=== PATIENT | female | born 1995 | race Caucasian/White ===

== ENCOUNTER 2018-05-09 11:59 | Emergency (ER) | payer BC, OTHER ==
[2018-05-09] MEDS ORDERED: ACETAMINOPHEN 325 MG TABLET PO ONE (12:38)
--- NOTE | 2018-05-09 12:39 | ER Document Report ---
ED Medical Screen (RME) - General Chief Complaint: Flank Pain Stated Complaint: BACK PAIN Time Seen by Provider: 05/09/18 12:30 Notes: 23-year-old female patient, 16-17 weeks complaining of left flank pain. Seems to get worse with urination. No fever, chills, sweats. No nausea or vomiting. Pain is located in the left flank area and radiates down to the left lower quadrant. No vaginal discharge. No vaginal bleeding. Ultrasound has been performed by OB confirming IUP. I have greeted and performed a rapid initial assessment of this patient. A comprehensive ED assessment and evaluation of the patient, analysis of test resu lts and completion of the medical decision making process will be conducted by additional ED providers. TRAVEL OUTSIDE OF THE [place] IN LAST 30 DAYS: No - Related Data Allergies/Adverse Reactions: No Known Allergies Allergy (Unverified 05/09/18 12:03) Past Medical History Renal/ Medical History: Denies: Hx Peritoneal Dialysis Physical Exam - Vital signs Vitals: Temp Pulse Resp BP Pulse Ox 97.8 F 92 20 143/87 H 100 05/09/18 12:14 05/09/18 12:14 05/09/18 12:14 05/09/18 12:14 05/09/18 12:14 Course - Re-evaluation Re-evalutation: 05/09/18 12:39 Physical exam: Left flank pain with percussion, mild left lower quadrant tenderness to palpation. No guarding or rebound. - Vital Signs Vital signs: Temp Pulse Resp BP Pulse Ox 97.8 F 92 20 143/87 H 100 05/09/18 12:14 05/09/18 12:14 05/09/18 12:14 05/09/18 12:14 05/09/18 12:14
[2018-05-09] MEDS ORDERED: OXYCODONE-ACETAMINOPHEN 5-325 MG TABLET PO ONE (12:51)
[2018-05-09 13:33] LABS: APPEARANCE,URINE TURBID; BILIRUBIN,URINE NEGATIVE (NEGATIVE); CALCIUM OXALATE CRYSTALS,URINE FEW /HPF; GLUCOSE, URINE NEGATIVE (NEGATIVE); KETONES,URINE 80 mg/dL (NEGATIVE); LEUKOCYTE ESTERASE,URINE MODERATE (NEGATIVE); NITRITE,URINE NEGATIVE (NEGATIVE); PROTEIN,URINE 30 mg/dL (NEGATIVE); URINE SPECIFIC GRAVITY 1.027; UROBILINOGEN,URINE NEGATIVE mg/dL (<2.0)
[2018-05-09 13:34] LABS: COLOR,URINE YELLOW
[2018-05-09] MEDS ORDERED: ONDANSETRON 4 MG TAB.RAPDIS ONE (13:40)
[2018-05-09] MEDS ORDERED: ONDANSETRON 4 MG TAB.RAPDIS PO ONE (13:41)
[2018-05-09] MEDS ORDERED: MORPHINE SULFATE 10 MG/ML INJ IV ONE (14:06)
[2018-05-09] MEDS ORDERED: CEFTRIAXONE INJ 1000 MG VIAL IV ONE (14:06)
[2018-05-09] MEDS ORDERED: ONDANSETRON HCL INJ/PF 4 MG/2 ML SDV IV ONE (14:06)
[2018-05-09] MEDS ORDERED: NORMAL SALINE 1000 ML 1,000 ML IV ONE (14:06)
--- NOTE | 2018-05-09 14:17 | RADIOLOGY REPORT (SQ) ---
EXAM DESCRIPTION: U/S RETROPERITON (RENAL/AORTA) COMPLETED DATE/TIME: 05/09/2018 2:07 pm REASON FOR STUDY: + preg and left flank pain COMPARISON: None. TECHNIQUE: Dynamic and static grayscale images acquired of the kidneys and bladder and recorded on P ACS. Additional selected color Doppler and spectral images recorded. LIMITATIONS: None. FINDINGS: RIGHT KIDNEY: Normal size, 10.6 cm. Normal echogenicity. No solid or suspicious masses. No hydronephrosis. No calcifications. LEFT KIDNEY: Normal size, 12 cm. Normal echogenicity. No solid or suspicious masses. The renal pelv is is prominent, but there is no true hydronephrosis. No calcifications. BLADDER: Not well distended. Not well evaluated. OTHER FINDINGS: No other significant finding. IMPRESSION: There is slight prominence of the right renal pelvis but there is no true hydronephrosis . TECHNICAL DOCUMENTATION: JOB ID: [id number] [employer]- All Rights Reserved Reading location - IP/workstation name: [email or web address]
[2018-05-09 15:26] LABS: ABSOLUTE LYMPHOCYTES (AUTO) 0.9 10^3/uL (0.5-4.7); ABSOLUTE MONOCYTES (AUTO) 0.4 10^3/uL (0.1-1.4); ABSOLUTE NEUT (AUTO) 14.3 10^3/uL (1.7-8.2); BASOPHILS % (AUTO) 0.2 % (0-2); HEMATOCRIT 40.4 % (36.0-47.0); HEMOGLOBIN 13.8 g/dL (12.0-15.5); LYMPHOCYTES % (AUTO) 5.6 % (13-45); MEAN CORPUSCULAR HEMOGLOBIN 30.8 pg (27.0-33.4); MEAN CORPUSCULAR HGB CONC 34.2 g/dL (32.0-36.0); MEAN CORPUSCULAR VOLUME 90 fl (80-97); MONOCYTES % (AUTO) 2.4 % (3-13); PLATELET COUNT 212 10^3/uL (150-450); RED BLOOD COUNT 4.49 10^6/uL (3.72-5.28); RED CELL DISTRIBUTION WIDTH 14.4 % (11.5-14.0); SEGMENTED NEUTROPHILS % (AUTO) 91.8 % (42-78); TOTAL CELLS COUNTED % (AUTO) 100 %; WHITE BLOOD COUNT 15.6 10^3/uL (4.0-10.5)
[2018-05-09 15:38] LABS: ALANINE AMINOTRANSFERASE 38 U/L (9-52); ALBUMIN 4.2 g/dL (3.5-5.0); ALKALINE PHOSPHATASE 58 U/L (38-126); ANION GAP 12 (5-19); ASPARTATE AMINO TRANSFERASE 21 U/L (14-36); BILIRUBIN,DIRECT 0.3 mg/dL (0.0-0.4); BILIRUBIN,TOTAL 0.5 mg/dL (0.2-1.3); BLOOD UREA NITROGEN 8 mg/dL (7-20); CALCIUM 10.1 mg/dL (8.4-10.2); CARBON DIOXIDE 23 mmol/L (22-30); CHLORIDE 104 mmol/L (98-107); GLUCOSE 103 mg/dL (75-110); POTASSIUM 4.1 mmol/L (3.6-5.0); TOTAL PROTEIN 6.3 g/dL (6.3-8.2)
[2018-05-09] MEDS ORDERED: METOCLOPRAMIDE HCL INJ/PF 10 MG/2 ML SDV IV ONE (16:36)
[2018-05-09] MEDS ORDERED: DIPHENHYDRAMINE HCL 50 MG/ML VIAL IV ONE (16:36)
--- NOTE | 2018-05-09 18:30 | ER Document Report ---
ED General - General Chief Complaint: Flank Pain Stated Complaint: BACK PAIN Time Seen by Provider: 05/09/18 12:30 TRAVEL OUTSIDE OF THE [place] IN LAST 30 DAYS: No - HPI Notes: Patient presents emergency department for evaluation. She has pain in her left lower back for the last several days. She started with nausea and vomiting today. She denies any fevers but has had some chills. She is approximately 16 weeks . She actually has an appointment with her OB tomorrow. - Related Data Allergies/Adverse Reactions: No Known Allergies Allergy (Unverified 05/09/18 12:03) Past Medical History - General Information source: Patient - Social History Smoking Status: Never Smoker Family History: Reviewed & Not Pertinent Patient has suicidal ideation: No Patient has homicidal ideation: No Renal/ Medical History: Denies: Hx Peritoneal Dialysis Review of Systems - Review of Systems -: Yes ROS unobtainable due to patient's medical condition Constitutional: Chills EENT: No symptoms reported Cardiovascular: No symptoms reported Respiratory: No symptoms reported Gastrointestinal: See HPI Genitourinary: See HPI Female Genitourinary: Musculoskeletal: No symptoms reported Hematologic/Lymphatic: No symptoms reported Physical Exam - Vital signs Vitals: Temp Pulse Resp BP Pulse Ox 97.8 F 92 20 143/87 H 100 05/09/18 12:14 05/09/18 12:14 05/09/18 12:14 05/09/18 12:14 05/09/18 12:14 - Notes Notes: Vital signs reviewed, please refer to chart. Patient is normocephalic, atraumatic. Pupils equal round, reactive to light. Neck is supple without meningismus. Heart is regular rate and rhythm. Lungs are clear to auscultation bilaterally. Abdomen is soft, nontender, normoactive bowel sounds throughout. Extremities without cyanosis, clubbing, edema. Peripheral pulses are equal. Skin is warm and dry. Patient is awake, alert, neurological exam is nonfocal. Examination of the spine yields no midline tenderness or step-off. She has paraspinal musculature tenderness noted from approximately L3-L5 on the left. No CVA tenderness. Negative straight leg raise bilaterally. Sensation intact. Course - Re-evaluation Re-evalutation: 05/09/18 18:26 Patient presents to the emergency department for evaluation. She had nausea and vomiting. She had orders as initially placed by the doctor in triage. She is found to have urinary tract infection. She is given IV antibiotics. She continued to have pain and nausea. She was medicated further. Renal ultrasound was performed. There was prominence of the right renal pelvis but not the left. This does not correlate with her side of symptoms. I do not have a strong suspicion for a need for inpatient at this time. He does have a leukocytosis but her vitals improved. She is feeling significantly improved. She Livan has follow-up tomorrow. I did explain to her the risks associated with urinary tract infection in . The importance of follow-up on the culture and recheck of her urine was stressed. I will go ahead and treat her with antibiotics. She has an appointment with her OB tomorrow. She is to return to the ED with worsening or new concerning symptoms of any sort. 05/09/18 18:28 05/09/18 19:21 Did perform an informal bedside ultrasound. Positive intrauterine with a heart rate of 152 bpm. 4 limbs, moving spontaneously. - Vital Signs Vital signs: Temp Pulse Resp BP Pulse Ox 97.8 F 92 20 143/87 H 100 05/09/18 12:14 05/09/18 12:14 05/09/18 12:14 05/09/18 12:14 05/09/18 12:14 - Laboratory Result Diagrams: 05/09/18 14:55 05/09/18 14:55 Laboratory results interpreted by me: 05/09/18 05/09/18 12:37 14:55 WBC 15.6 H RDW 14.4 H Seg Neutrophils % 91.8 H Lymphocytes % 5.6 L Monocytes % 2.4 L Absolute Neutrophils 14.3 H Urine Protein 30 H Urine Ketones 80 H Urine Blood SMALL H Ur Leukocyte Esterase MODERATE H Urine Ascorbic Acid 40 H Discharge - Discharge Clinical Impression: Urinary tract infection, Nausea and vomiting, Instructions: Cephalexin ([facility]), Urinary Tract Infection ([facility]) Additional Instructions: Stay hydrated with small, frequent sips of fluids. Take all the antibiotics as prescribed until gone. Follow-up with your OB as scheduled tomorrow. Return to the emergency department with worsening or new concerning symptoms. Prescriptions: Cephalexin Monohydrate [Keflex 500 mg Capsule] 500 mg PO Q6H 5 Days #28 capsule
[2018-05-09 19:24] VITALS: BP 126/85
== END 2018-05-09 19:26 | disposition home or self-care (01) ==
LOC: ER 11:59
DX: O23.42 Unspecified infection of urinary tract in pregnancy, second trimester (principal); O21.9 Vomiting of pregnancy, unspecified; O26.892 Other specified pregnancy related conditions, second trimester; M54.9 Dorsalgia, unspecified; R10.9 Unspecified abdominal pain; M54.5 Low back pain; Z3A.16 16 weeks gestation of pregnancy
CPT/HCPCS: 36415; 87040; 87086; 85025; 87088; 80053; 81001; 76770; J1200; S0119; J2765; J2270; J0696; J2405; J7030

== ENCOUNTER 2018-09-13 10:19 | Outpatient (CLI) | payer BC, OTHER ==
[2018-09-13 10:52] LABS: ABSOLUTE LYMPHOCYTES (AUTO) 1.6 10^3/uL (0.5-4.7); ABSOLUTE MONOCYTES (AUTO) 0.6 10^3/uL (0.1-1.4); ABSOLUTE NEUT (AUTO) 7.7 10^3/uL (1.7-8.2); BASOPHILS % (AUTO) 0.2 % (0-2); EOSINOPHILS % (AUTO) 0.3 % (0-6); HEMATOCRIT 36.5 % (36.0-47.0); HEMOGLOBIN 12.3 g/dL (12.0-15.5); LYMPHOCYTES % (AUTO) 15.9 % (13-45); MEAN CORPUSCULAR HGB CONC 33.8 g/dL (32.0-36.0); MEAN CORPUSCULAR VOLUME 92 fl (80-97); PLATELET COUNT 180 10^3/uL (150-450); RED BLOOD COUNT 3.98 10^6/uL (3.72-5.28); SEGMENTED NEUTROPHILS % (AUTO) 77.6 % (42-78); TOTAL CELLS COUNTED % (AUTO) 100 %; WHITE BLOOD COUNT 9.9 10^3/uL (4.0-10.5)
[2018-09-13 11:03] LABS: APPEARANCE,URINE SLIGHTLY-CLOUDY; BILIRUBIN,URINE NEGATIVE (NEGATIVE); COLOR,URINE YELLOW; GLUCOSE, URINE NEGATIVE (NEGATIVE); KETONES,URINE TRACE mg/dL (NEGATIVE); LEUKOCYTE ESTERASE,URINE TRACE (NEGATIVE); NITRITE,URINE NEGATIVE (NEGATIVE); PROTEIN,URINE 30 mg/dL (NEGATIVE); URINE SPECIFIC GRAVITY 1.016
[2018-09-13 11:07] LABS: ALANINE AMINOTRANSFERASE 20 U/L (9-52); ALBUMIN 3.1 g/dL (3.5-5.0); ALKALINE PHOSPHATASE 88 U/L (38-126); ASPARTATE AMINO TRANSFERASE 17 U/L (14-36); BILIRUBIN,DIRECT 0.1 mg/dL (0.0-0.4); BILIRUBIN,TOTAL 0.3 mg/dL (0.2-1.3); BLOOD UREA NITROGEN 4 mg/dL (7-20); CALCIUM 8.7 mg/dL (8.4-10.2); CARBON DIOXIDE 23 mmol/L (22-30); GLUCOSE 76 mg/dL (75-110); POTASSIUM 3.9 mmol/L (3.6-5.0); TOTAL PROTEIN 5.3 g/dL (6.3-8.2); URIC ACID 4.2 mg/dL (2.5-6.2)
[2018-09-13 11:12] LABS: CHLORIDE 106 mmol/L (98-107); SODIUM 135.3 mmol/L (137-145)
[2018-09-13 11:14] LABS: ANION GAP 6 (5-19)
[2018-09-13 11:20] LABS: URINE AMPHETAMINES SCREEN NEGATIVE; URINE BARBITURATES SCREEN NEGATIVE; URINE BENZODIAZEPINES SCREEN NEGATIVE; URINE COCAINE SCREEN NEGATIVE; URINE MARIJUANA (THC) SCREEN NEGATIVE; URINE METHADONE SCREEN NEGATIVE; URINE PHENCYCLIDINE SCREEN NEGATIVE
[2018-09-13 11:22] LABS: UR PRO/CREAT RATIO RESULT 0.1 mg/mg (0.0-0.2); URINE CREATININE 138.5 mg/dL (16-327); URINE PROTEIN 15.5 mg/dL (<12)
--- NOTE | 2018-09-13 11:49 | Non Stress Test Report ---
Non Stress Test Datetime Report Generated by CPN: 09/13/2018 11:48 DEMOGRAPHIC Test Number: 2 EGA NST: 34.3 INDICATION Indication for Study: Gestational Hypertension; Diabetes Mellitus; Ordered by Provider VITAL SIGNS Temperature - NST: 98.6 Pulse - NST: 83 RESP - NST: 18 NBPSYS NST: 126 NBPDIA NST: 74 MONITORING Monitor Explained: Monitor Explained; Test Explained; Patient Verbalized Understanding Time on Monitor: 09/13/2018 10:35 Time off Monitor: 09/13/2018 11:46 NST Duration: 71 NST INTERVENTIONS NST Interventions: PO Hydration; Reposition Patient Physician Notified NST: P Villagran CNM BABY A: [id number] BABY A Movement : Present Contraction Frequency : irrit FHR Baseline : 130 Accelerations : 15X15 Decelerations : None Variability : Moderate 6-25bpm NST Review: Meets Criteria for Reactive NST NST Review and Verified By : BL ROULUND, RN NST Results: Reactive NST COMMENTS NST Comments: Strip reviewed by P Villagran CNM NST REPORT Report Trigger: Send Report
== END 2018-09-13 12:02 | disposition home or self-care (01) ==
LOC: LC 10:19
PROVIDERS: ATTEND Obstetrics & Gynecology
PROC: 4A1HXCZ Monitoring of Products of Conception, Cardiac Rate, External Approach (ICD-10-PCS; principal; 2018-09-13)
DX: O13.3 Gestational [pregnancy-induced] hypertension without significant proteinuria, third trimester (principal); O24.913 Unspecified diabetes mellitus in pregnancy, third trimester; Z3A.34 34 weeks gestation of pregnancy
CPT/HCPCS: 36415; 59025; 80053; 80307; 81001; 82570; 83615; 84156; 84550; 85025

== ENCOUNTER 2018-09-17 16:54 | Outpatient (CLI) | payer BC, OTHER ==
[2018-09-17 17:51] LABS: AMORPHOUS SEDIMENT,URINE TRACE /HPF; APPEARANCE,URINE CLOUDY; BILIRUBIN,URINE NEGATIVE (NEGATIVE); CALCIUM OXALATE CRYSTALS,URINE RARE /HPF; COLOR,URINE YELLOW; GLUCOSE, URINE NEGATIVE (NEGATIVE); KETONES,URINE NEGATIVE (NEGATIVE); LEUKOCYTE ESTERASE,URINE SMALL (NEGATIVE); NITRITE,URINE NEGATIVE (NEGATIVE); PROTEIN,URINE NEGATIVE (NEGATIVE); URINE SPECIFIC GRAVITY 1.015; UROBILINOGEN,URINE NEGATIVE mg/dL (<2.0)
[2018-09-17 18:12] LABS: UR PRO/CREAT RATIO RESULT 0.2 mg/mg (0.0-0.2); URINE CREATININE 126.4 mg/dL (16-327); URINE PROTEIN 25.9 mg/dL (<12)
[2018-09-17 18:14] LABS: ABSOLUTE BASOPHILS # (AUTO) 0.1 10^3/uL (0.0-0.2); ABSOLUTE LYMPHOCYTES (AUTO) 1.7 10^3/uL (0.5-4.7); ABSOLUTE MONOCYTES (AUTO) 0.7 10^3/uL (0.1-1.4); ABSOLUTE NEUT (AUTO) 7.1 10^3/uL (1.7-8.2); BASOPHILS % (AUTO) 0.7 % (0-2); EOSINOPHILS % (AUTO) 0.2 % (0-6); HEMATOCRIT 33.6 % (36.0-47.0); HEMOGLOBIN 11.5 g/dL (12.0-15.5); LYMPHOCYTES % (AUTO) 17.7 % (13-45); MEAN CORPUSCULAR HGB CONC 34.3 g/dL (32.0-36.0); MEAN CORPUSCULAR VOLUME 90 fl (80-97); MONOCYTES % (AUTO) 7.6 % (3-13); PLATELET COUNT 175 10^3/uL (150-450); RED BLOOD COUNT 3.72 10^6/uL (3.72-5.28); RED CELL DISTRIBUTION WIDTH 15.6 % (11.5-14.0); SEGMENTED NEUTROPHILS % (AUTO) 73.8 % (42-78); TOTAL CELLS COUNTED % (AUTO) 100 %; WHITE BLOOD COUNT 9.6 10^3/uL (4.0-10.5)
[2018-09-17 18:21] LABS: URINE AMPHETAMINES SCREEN NEGATIVE; URINE BARBITURATES SCREEN NEGATIVE; URINE BENZODIAZEPINES SCREEN NEGATIVE; URINE COCAINE SCREEN NEGATIVE; URINE MARIJUANA (THC) SCREEN NEGATIVE; URINE METHADONE SCREEN NEGATIVE; URINE PHENCYCLIDINE SCREEN NEGATIVE
[2018-09-17 18:33] LABS: ALANINE AMINOTRANSFERASE 25 U/L (9-52); ALBUMIN 2.9 g/dL (3.5-5.0); ALKALINE PHOSPHATASE 80 U/L (38-126); ANION GAP 5 (5-19); ASPARTATE AMINO TRANSFERASE 16 U/L (14-36); BILIRUBIN,DIRECT 0.1 mg/dL (0.0-0.4); BILIRUBIN,TOTAL 0.2 mg/dL (0.2-1.3); BLOOD UREA NITROGEN 7 mg/dL (7-20); CARBON DIOXIDE 23 mmol/L (22-30); CHLORIDE 108 mmol/L (98-107); GLUCOSE 83 mg/dL (75-110); POTASSIUM 3.6 mmol/L (3.6-5.0); SODIUM 135.5 mmol/L (137-145); URIC ACID 4.6 mg/dL (2.5-6.2)
--- NOTE | 2018-09-17 19:38 | Non Stress Test Report ---
Non Stress Test Datetime Report Generated by CPN: 09/17/2018 19:37 DEMOGRAPHIC EGA NST: 35.0 INDICATION Indication for Study: Other Indication for Study (NST) Other: non reactive NST in office VITAL SIGNS Temperature - NST: 98.4 Pulse - NST: 88 RESP - NST: 18 NBPSYS NST: 141 NBPDIA NST: 89 URINE RESULTS Urine Ketones - NST: Positive MONITORING Monitor Explained: Monitor Explained; Test Explained; Patient Verbalized Understanding Time on Monitor: 09/17/2018 17:09 Time off Monitor: 09/17/2018 19:13 NST Duration: 124 NST INTERVENTIONS NST Interventions: PO Hydration Physician Notified NST: Dr. Florencio BABY A: [id number] BABY A Movement : Present Contraction Frequency : none FHR Baseline : 135 Accelerations : 15X15 Decelerations : None Variability : Moderate 6-25bpm NST Review: Meets Criteria for Reactive NST NST Review and Verified By : BL ROULUND, RN NST Results: Reactive NST REPORT Report Trigger: Send Report
== END 2018-09-17 19:22 | disposition home or self-care (01) ==
LOC: LC 16:54
PROVIDERS: ATTEND Obstetrics & Gynecology
DX: O47.03 False labor before 37 completed weeks of gestation, third trimester (principal); Z3A.34 34 weeks gestation of pregnancy
CPT/HCPCS: 36415; 59025; 80053; 80307; 81001; 82570; 83615; 84156; 84550; 85025

== ENCOUNTER 2018-09-20 14:28 | Outpatient (CLI) | payer BC, OTHER ==
[2018-09-20 15:17] LABS: APPEARANCE,URINE SLIGHTLY-CLOUDY; BILIRUBIN,URINE NEGATIVE (NEGATIVE); COLOR,URINE YELLOW; GLUCOSE, URINE NEGATIVE (NEGATIVE); KETONES,URINE NEGATIVE (NEGATIVE); LEUKOCYTE ESTERASE,URINE NEGATIVE (NEGATIVE); NITRITE,URINE NEGATIVE (NEGATIVE); PROTEIN,URINE NEGATIVE (NEGATIVE); URINE SPECIFIC GRAVITY 1.012; UROBILINOGEN,URINE NEGATIVE mg/dL (<2.0)
[2018-09-20 15:28] LABS: ABSOLUTE BASOPHILS # (AUTO) 0.1 10^3/uL (0.0-0.2); ABSOLUTE EOSINOPHILS # (AUTO) 0.1 10^3/uL (0.0-0.6); ABSOLUTE LYMPHOCYTES (AUTO) 1.4 10^3/uL (0.5-4.7); ABSOLUTE MONOCYTES (AUTO) 0.8 10^3/uL (0.1-1.4); ABSOLUTE NEUT (AUTO) 8.2 10^3/uL (1.7-8.2); BASOPHILS % (AUTO) 0.5 % (0-2); EOSINOPHILS % (AUTO) 0.7 % (0-6); HEMATOCRIT 34.7 % (36.0-47.0); HEMOGLOBIN 11.7 g/dL (12.0-15.5); LYMPHOCYTES % (AUTO) 13.6 % (13-45); MEAN CORPUSCULAR HEMOGLOBIN 30.9 pg (27.0-33.4); MEAN CORPUSCULAR HGB CONC 33.7 g/dL (32.0-36.0); MEAN CORPUSCULAR VOLUME 92 fl (80-97); MONOCYTES % (AUTO) 7.7 % (3-13); PLATELET COUNT 178 10^3/uL (150-450); RED BLOOD COUNT 3.79 10^6/uL (3.72-5.28); RED CELL DISTRIBUTION WIDTH 15.5 % (11.5-14.0); SEGMENTED NEUTROPHILS % (AUTO) 77.5 % (42-78); TOTAL CELLS COUNTED % (AUTO) 100 %; WHITE BLOOD COUNT 10.6 10^3/uL (4.0-10.5)
[2018-09-20 15:29] LABS: URINE AMPHETAMINES SCREEN NEGATIVE; URINE BARBITURATES SCREEN NEGATIVE; URINE BENZODIAZEPINES SCREEN NEGATIVE; URINE COCAINE SCREEN NEGATIVE; URINE MARIJUANA (THC) SCREEN NEGATIVE; URINE METHADONE SCREEN NEGATIVE; URINE PHENCYCLIDINE SCREEN NEGATIVE
[2018-09-20 15:33] LABS: UR PRO/CREAT RATIO RESULT 0.2 mg/mg (0.0-0.2); URINE CREATININE 90.4 mg/dL (16-327); URINE PROTEIN 16.7 mg/dL (<12)
[2018-09-20 15:46] LABS: ALANINE AMINOTRANSFERASE 16 U/L (9-52); ALBUMIN 2.9 g/dL (3.5-5.0); ALKALINE PHOSPHATASE 77 U/L (38-126); ANION GAP 6 (5-19); ASPARTATE AMINO TRANSFERASE 15 U/L (14-36); BILIRUBIN,DIRECT 0.1 mg/dL (0.0-0.4); BILIRUBIN,TOTAL 0.2 mg/dL (0.2-1.3); BLOOD UREA NITROGEN 6 mg/dL (7-20); CALCIUM 8.7 mg/dL (8.4-10.2); CARBON DIOXIDE 25 mmol/L (22-30); CHLORIDE 106 mmol/L (98-107); GLUCOSE 81 mg/dL (75-110); POTASSIUM 3.8 mmol/L (3.6-5.0); SODIUM 136.8 mmol/L (137-145); TOTAL PROTEIN 5.2 g/dL (6.3-8.2); URIC ACID 4.6 mg/dL (2.5-6.2)
--- NOTE | 2018-09-20 16:17 | Non Stress Test Report ---
Non Stress Test Datetime Report Generated by CPN: 09/20/2018 16:16 DEMOGRAPHIC EGA NST: 35.3 INDICATION Indication for Study: Other Indication for Study (NST) Other: preeclampsia workup VITAL SIGNS Temperature - NST: 98.9 Pulse - NST: 87 RESP - NST: 16 NBPSYS NST: 121 NBPDIA NST: 70 MONITORING Monitor Explained: Monitor Explained; Test Explained; Patient Verbalized Understanding Time on Monitor: 09/20/2018 14:45 Time off Monitor: 09/20/2018 16:11 NST Duration: 86 NST INTERVENTIONS NST Interventions: PO Hydration Physician Notified NST: A Lopez CNM Physician Notified NST: A. Lopez, CNM BABY A: [id number] BABY A Movement : Present Contraction Frequency : none FHR Baseline : 150 Accelerations : 15X15 Decelerations : None Variability : Moderate 6-25bpm NST Review: Meets Criteria for Reactive NST NST Review: Meets Criteria for Reactive NST NST Review and Verified By : Myrna Camp RNC NST Results: Reactive NST REPORT Report Trigger: Send Report
== END 2018-09-20 16:17 | disposition home or self-care (01) ==
LOC: LC 14:28
PROVIDERS: ATTEND Obstetrics & Gynecology Gynecology
PROC: 4A1HXCZ Monitoring of Products of Conception, Cardiac Rate, External Approach (ICD-10-PCS; principal; 2018-09-20)
DX: O14.93 Unspecified pre-eclampsia, third trimester (principal); Z3A.35 35 weeks gestation of pregnancy
CPT/HCPCS: 36415; 59025; 80053; 80307; 81001; 82570; 83615; 84156; 84550; 85025